=== PATIENT | female | born 1970 | race African-American/Black ===

== ENCOUNTER 2018-03-12 08:02 | Emergency (ER) | payer BC ==
[~2018-03-12] VITALS: Ht 152.4 cm; Wt 91.4 kg
[2018-03-12] MEDS ORDERED: 0.9 % SODIUM CHLORIDE 10 ML DISP.SYRIN. IV PRN (08:45)
--- NOTE | 2018-03-12 09:14 | RAD ---
CT head without intravenous contrast History: Fatigue, dizziness, weakness. Comparison: CT head August 08, 2012. Technique: Axial images are obtained of the head from the skull base through the vertex without IV contrast. Exposure: One or more of the following individualized dose reduction techniques were utilized for this examination: 1. Automated exposure control 2. Adjustment of the mA and/or kV according to patient size 3. Use of iterative reconstruction technique Findings: The ventricles are appropriate in size, shape, and location for the patient's age. No obvious intracranial mass, mass-effect, midline shift, hemorrhage or obvious acute infarction is identified. Basilar cisterns are patent. Bone windows demonstrate no acute calvarial abnormality. The visualized paranasal sinuses appear clear. Impression: No acute intracranial process. Please note that CT can be relatively insensitive to acute ischemic infarction for up to 24 hours after symptom onset. Electronically signed by: Leoncio Vale MD (03/12/2018 9:10 AM) [facility]
[2018-03-12 09:21] LABS: BASO # 0.1 x10^3/uL (0.0-0.2); BASO % 1 % (0-3); EOS # 0.5 x10^3/uL (0.0-0.7); EOS % 5 % (0-3); HEMATOCRIT 32.2 % (36.0-47.0); HEMOGLOBIN 9.9 g/dL (12.0-15.5); LYMPH # 3.1 x10^3/uL (1.0-4.8); LYMPH % 27 % (24-48); MEAN CORPUSCULAR HEMOGLOBIN 22 pg (25-35); MEAN CORPUSCULAR HGB CONC 31 g/dL (31-37); MEAN CORPUSCULAR VOLUME 71 fL (79-100); MONO # 1.2 x10^3/uL (0.0-1.1); MONO % 10 % (0-9); NEUT # 6.6 x10^3uL (1.8-7.7); NEUT % 58 % (31-73); PLATELET COUNT 312 x10^3/uL (140-400); RED BLOOD COUNT 4.52 x10^6/uL (3.50-5.40); RED CELL DISTRIBUTION WIDTH 19.3 % (11.5-14.5); WHITE BLOOD COUNT 11.4 x10^3/uL (4.0-11.0)
--- NOTE | 2018-03-12 09:27 | EKG ---
[address] [address] Test Date: 2018-03-12 Test Time: 08:29:47 Pat Name: LOGAN MASTERS Department: Room: Gender: F Deputy Attorney General: ROSITA : 1970 Requested By: JOSE MORA Order Number: [id number] Reading MD: Edward Wolfe MD Measurements Intervals [place] Rate: 71 P: 54 FL: 134 QRS: -14 QRSD: 100 T: 96 QT: 446 QTc: 485 Interpretive Statements SINUS RHYTHM Electronically Signed On 03-12-2018 13:08:19 CDT by Edward Wolfe MD
--- NOTE | 2018-03-12 09:36 | RAD ---
EXAM: Chest, 2 views. HISTORY: Fatigue. COMPARISON: 08/08/2012 FINDINGS: Frontal and lateral views of the chest are obtained. There is cardiomegaly, slightly increased compared to the prior study. There is no consolidation, pleural effusion or pneumothorax. IMPRESSION: Mild cardiomegaly, slightly increased compared to the prior study. Electronically signed by: Bekah Noel MD (03/12/2018 9:33 AM) [facility]
[2018-03-12 09:44] LABS: ALBUMIN 3.4 g/dL (3.4-5.0); ALBUMIN/GLOBULIN RATIO 0.9 (1.0-1.7); CALCIUM 8.9 mg/dL (8.5-10.1); CREATININE 0.9 mg/dL (0.6-1.0); GFR 80.5; MAGNESIUM 1.9 mg/dL (1.8-2.4); POTASSIUM 3.3 mmol/L (3.5-5.1); TOTAL BILIRUBIN 0.3 mg/dL (0.2-1.0); TOTAL PROTEIN 7.2 g/dL (6.4-8.2)
[2018-03-12 09:53] LABS: BILIRUBIN,URINE NEG (NEG); CLARITY,URINE HAZY; COLOR,URINE YELLOW; GLUCOSE,URINE NEG (NEG); NITRITE,URINE NEG (NEG); RBC,URINE RARE /HPF (0-2); UROBILINOGEN,URINE 0.2 mg/dL (0.2 mg/dL)
[2018-03-12 09:54] LABS: BACTERIA,URINE MOD /HPF (0-FEW); SQUAMOUS EPITHELIAL CELL,UR MANY /LPF
[2018-03-12 10:07] LABS: ANISOCYTOSIS SLIGHT; HYPOCHROMIA MOD; MICROCYTOSIS MOD; PLT ESTIMATE ADEQUATE (ADEQUATE); POLYCHROMASIA PRESENT
[2018-03-12 10:08] LABS: OVALOCYTES PRESENT; TARGET CELLS PRESENT
--- NOTE | 2018-03-12 10:13 | PHYS DOC ---
Past History Past Medical History: Anxiety, Hypertension Past Surgical History: Tubal ligation Alcohol Use: None Drug Use: None Adult General Chief Complaint Chief Complaint: dizziness and weakness [facility] HPI 47-year-old female patient complaining of generalized weakness for the last 4 days with intermittent episodes of dizziness with activity associated with nausea. Patient states she had foggy thinking today and almost passing out because of weakness and dizziness and decided to come to ER. She denies chest pain, palpitation, focal neuro deficit, fever and chills, urinary symptom. Patient states she had shortness of breath and lower extremity edema and seen by her primary care physician and treated with losartan/hydrochlorothiazide 5 days ago improvement of her condition. Patient states she had chest x-ray few weeks ago that showed she had enlarged heart. Review of Systems Review of Systems Constitutional: Denies fever or chills [] Eyes: Denies change in visual acuity, redness, or eye pain [] HENT: Denies nasal congestion or sore throat [] Respiratory: Denies cough or shortness of breath [] Cardiovascular: No additional information not addressed in HPI [] GI: Denies abdominal pain, vomiting, bloody stools or diarrhea , reports nausea [] : Denies dysuria or hematuria [] Musculoskeletal: Denies back pain or joint pain [] Integument: Denies rash or skin lesions [] Neurologic: Denies headache, focal weakness or sensory changes [] Endocrine: Denies polyuria or polydipsia [] All other systems were reviewed and found to be within normal limits, except as documented in this note. Current Medications Current Medications Current Medications Medications (Trade) Dose Ordered Sig/[facility] Start Time Stop Time Status Last Admin Dose Admin Sodium Chloride (Normal Saline Flush) 10 ml QSHIFT PRN 03/12/18 08:45 UNV Physical Exam Physical Exam Constitutional: Well developed, well nourished, mild distress, non-toxic appearance. [] HENT: Normocephalic, atraumatic, bilateral external ears normal, oropharynx moist, no oral exudates, nose normal. Eyes: PERRLA, EOMI, conjunctiva normal, no discharge, mild pallor. [] Neck: Normal range of motion, no tenderness, supple, no stridor. [] Cardiovascular:Heart rate regular rhythm, no murmur [] Lungs & Thorax: Bilateral breath sounds clear to auscultation [] Abdomen: Bowel sounds normal, soft, no tenderness, no masses, no pulsatile masses. [] Skin: Warm, dry, no erythema, no rash. [] Back: No tenderness, no CVA tenderness. [] Extremities: No tenderness, no cyanosis, no clubbing, ROM intact, no edema. [] Neurologic: Alert and oriented X 3, normal motor function, normal sensory function, no focal deficits noted. [] Psychologic: Affect normal, judgement normal, mood normal. [] Current Patient Data Vital Signs Vital Signs Date Time Temp Pulse Resp B/P (MAP) Pulse Ox O2 Delivery O2 Flow Rate FiO2 03/12/18 08:26 98.0 70 22 99 Room Air Lab Results Laboratory Tests Test 03/12/18 09:04 03/12/18 09:15 White Blood Count 11.4 x10^3/uL (4.0-11.0) H Red Blood Count 4.52 x10^6/uL (3.50-5.40) Hemoglobin 9.9 g/dL (12.0-15.5) L Hematocrit 32.2 % (36.0-47.0) L Mean Corpuscular Volume 71 fL (79-100) L Mean Corpuscular Hemoglobin 22 pg (25-35) L Mean Corpuscular Hemoglobin Concent 31 g/dL (31-37) Red Cell Distribution Width 19.3 % (11.5-14.5) H Platelet Count 312 x10^3/uL (140-400) Neutrophils (%) (Auto) 58 % (31-73) Lymphocytes (%) (Auto) 27 % (24-48) Monocytes (%) (Auto) 10 % (0-9) H Eosinophils (%) (Auto) 5 % (0-3) H Basophils (%) (Auto) 1 % (0-3) Neutrophils # (Auto) 6.6 x10^3uL (1.8-7.7) Lymphocytes # (Auto) 3.1 x10^3/uL (1.0-4.8) Monocytes # (Auto) 1.2 x10^3/uL (0.0-1.1) H Eosinophils # (Auto) 0.5 x10^3/uL (0.0-0.7) Basophils # (Auto) 0.1 x10^3/uL (0.0-0.2) Platelet Estimate Pending Sodium Level 139 mmol/L (136-145) Potassium Level 3.3 mmol/L (3.5-5.1) L Chloride Level 103 mmol/L (98-107) Carbon Dioxide Level 28 mmol/L (21-32) Anion Gap 8 (6-14) Blood Urea Nitrogen 10 mg/dL (7-20) Creatinine 0.9 mg/dL (0.6-1.0) Estimated GFR (Cockcroft-Gault) 80.5 BUN/Creatinine Ratio 11 (6-20) Glucose Level 99 mg/dL (70-99) Calcium Level 8.9 mg/dL (8.5-10.1) Magnesium Level 1.9 mg/dL (1.8-2.4) Total Bilirubin 0.3 mg/dL (0.2-1.0) Aspartate Amino Transferase (AST) 12 U/L (15-37) L Alanine Aminotransferase (ALT) 14 U/L (14-59) Alkaline Phosphatase 70 U/L (46-116) Creatine Kinase 60 U/L (26-192) Creatine Kinase MB (Mass) 0.6 ng/mL (0.0-3.6) Creatine Kinase MB Relative Index 1.0 % (0-4) Troponin I Quantitative < 0.017 ng/mL (0-0.055) HO-Myv-H-Type Natriuretic Peptide 463 pg/mL (0-124) H Total Protein 7.2 g/dL (6.4-8.2) Albumin 3.4 g/dL (3.4-5.0) Albumin/Globulin Ratio 0.9 (1.0-1.7) L Urine Collection Type Unknown Urine Color Yellow Urine Clarity Hazy Urine pH 5.5 Urine Specific [place] 1.025 Urine Protein 100 mg/dl (NEG-TRACE) Urine Glucose (UA) Neg mg/dL (NEG) Urine Ketones (Stick) Neg mg/dL (NEG) Urine Blood Mod (NEG) Urine Nitrite Neg (NEG) Urine Bilirubin Neg (NEG) Urine Urobilinogen Dipstick 0.2 mg/dL (0.2 mg/dL) Urine Leukocyte Esterase Neg (NEG) Urine RBC Rare /HPF (0-2) Urine WBC 1-4 /HPF (0-4) Urine Squamous Epithelial Cells Many /LPF Urine Bacteria Mod /HPF (0-FEW) Urine Mucus Marked /LPF EKG EKG EKG interpreted by me. EKG at 0 829 showed normal sinus rhythm at rate of 71, left atrial abnormality, left axis deviation, T abnormality in lateral leads, prolonged QT, no acute ST and T-wave abnormalities[] Radiology/Procedures Radiology/Procedures [] [address] [address] IMAGING REPORT Signed PATIENT: LOGAN MASTERS ACCOUNT: [id number] : 1970 LOCATION: ER AGE: 47 SEX: F EXAM STATUS: REG ER ORD. PHYSICIAN: JOSE MORA MD REASON: dizziness PROCEDURE: CHEST PA & LATERAL EXAM: Chest, 2 views. HISTORY: Fatigue. COMPARISON: 08/08/2012 FINDINGS: Frontal and lateral views of the chest are obtained. There is cardiomegaly, slightly increased compared to the prior study. There is no consolidation, pleural effusion or pneumothorax. IMPRESSION: Mild cardiomegaly, slightly increased compared to the prior study. Electronically signed by: Bekah Paniagua MD (03/12/2018 9:33 AM) [email or web address] DICTATED AND SIGNED BY: BEKAH PANIAGUA MD DATE: 03/12/18931 CC: JOSE MORA MD; ISI WAKEFIELD MD ~ [address] [address] IMAGING REPORT Signed PATIENT: LOGAN MASTERS ACCOUNT: [id number] : 1970 LOCATION: ER AGE: 47 SEX: F EXAM STATUS: REG ER ORD. PHYSICIAN: JOSE MORA MD REASON: dizziness PROCEDURE: CT HEAD WO CONTRAST CT head without intravenous contrast History: Fatigue, dizziness, weakness. Comparison: CT head August 08, 2012. Technique: Axial images are obtained of the head from the skull base through the vertex without IV contrast. Exposure: One or more of the following individualized dose reduction techniques were utilized for this examination: 1. Automated exposure control 2. Adjustment of the mA and/or kV according to patient size 3. Use of iterative reconstruction technique Findings: The ventricles are appropriate in size, shape, and location for the patient's age. No obvious intracranial mass, mass-effect, midline shift, hemorrhage or obvious acute infarction is identified. Basilar cisterns are patent. Bone windows demonstrate no acute calvarial abnormality. The visualized paranasal sinuses appear clear. Impression: No acute intracranial process. Please note that CT can be relatively insensitive to acute ischemic infarction for up to 24 hours after symptom onset. Electronically signed by: Leoncio Vizcarra MD (03/12/2018 9:10 AM) [facility] DICTATED AND SIGNED BY: LEONCIO VIZCARRA MD DATE: 03/12/18 0908 CC: JOSE MORA MD; ISI WAKEFIELD MD ~ Course & Med Decision Making Course & Med Decision Making Pertinent Labs and Imaging studies reviewed. (See chart for details) Evaluation of patient in ER showed 47-year-old male patient with complaining of generalized weakness and exertional shortness of breath and dizziness. Patient had mild pallor. Patient had negative fecal for blood. She denies heavy vaginal bleeding. Patient instructed to follow up with her primary care physician for more evaluation of anemia and dizziness. discharge: I've spoken with the patient and/or caregivers. I've explained the patient's condition, diagnosis and treatment plan based on information available to me at this time. I've answered the patient's and/or caregivers questions and addressed any concerns. The patient and/or caregivers have a good understanding the patient's diagnosis, condition and treatment plan as can be expected at this point. Vital signs have been stabilized. The patient's condition is stable for discharge from the emergency department. The patient will pursue further outpatient evaluation with her primary care provider or other designated consulting physician as outlined in the discharge instructions. Patient and/or caregivers are agreeable to this plan of care and follow-up instructions have been explained in detail. The patient and/or caregivers have received these instructions in written format and expressed understanding of these discharge instructions. The patient and her caregivers are aware that if any significant change in condition or worsening of symptoms should prompt him to immediately return to this of the closest emergency department. If an emergent department is not readily available I would encourage him to call 911. Syd Disclaimer Dragruthy Disclaimer This electronic medical record was generated, in whole or in part, using a voice recognition dictation system. Departure Departure: Impression: Primary Impression: Anemia Additional Impressions: Dizziness Hypokalemia Cardiomegaly Uncontrolled hypertension Tobacco abuse Tobacco abuse counseling Disposition: HOME, SELF-CARE (At 1122) Condition: IMPROVED Referrals: ISI WAKEFIELD MD (PCP) Patient Instructions: Anemia, FAQs, Dizziness, Smoking Cessation, Tips For Success Additional Instructions: Take [id number] iron Follow-up with your primary care physician in 3-5 days Return to ER if not getting better Problem Qualifiers JOSE MORA MD March 12, 2018 10:13
[2018-03-12 11:02] LABS: FECAL OB PT NEGATIVE (NEG)
[2018-03-12 14:31] VITALS: BP 161/94
== END 2018-03-12 11:30 | disposition home or self-care (01) ==
LOC: ER 08:02
DX: E87.6 Hypokalemia (principal); D64.9 Anemia, unspecified; I51.7 Cardiomegaly; I10 Essential (primary) hypertension; F41.9 Anxiety disorder, unspecified; Z72.0 Tobacco use; Z71.6 Tobacco abuse counseling
CPT/HCPCS: 36415; 70450; 71046; 80053; 81001; 82274; 82553; 83735; 83880; 84484; 85025; 87086; 93005; 99285-25

== ENCOUNTER 2021-06-02 13:50 | Emergency (ER) | payer BC ==
[~2021-06-02] VITALS: Ht 152.4 cm; Wt 78.6 kg
--- NOTE | 2021-06-02 14:55 | EKG ---
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
--- NOTE | 2021-06-02 15:09 | RAD ---
CT HEAD INDICATION: Reason: dizziness, hypertension / Spl. Instructions: / History: COMPARISON: 03/12/2018. Exposure: One or more of the following individualized dose reduction techniques were utilized for thi s examination: 1. Automated exposure control 2. Adjustment of the mA and/or kV according to patient size 3. Use of iterative reconstruction technique TECHNIQUE: 5 mm contiguous axial images were obtained from the skull base to the vertex in both bone and soft tissue algorithm. FINDINGS: No abnormal attenuation within the brain parenchyma. No evidence of acute intracranial hemorrhage. No extra-axial fluid collections. No mass effect or midline shift. Ventricular size is appropriate. Basal cisterns are patent. No fractures identified.Garcia-white differentiation is preserved.Globes and orbits are within normal l imits. Paranasal sinuses and mastoid air cells are clear. IMPRESSION: No acute intracranial findings. Electronically signed by: Morgan Coulter MD (06/02/2021 3:06 PM) [id number]
--- NOTE | 2021-06-02 15:15 | RAD ---
EXAM: Chest, single view. HISTORY: Chest pain. COMPARISON: 03/12/2018 FINDINGS: A frontal view of the chest is obtained. There is no infiltrate, pleural effusion or pneumo thorax. There is a stable enlarged cardiac silhouette. IMPRESSION: 1. Stable enlarged cardiac silhouette. 2. No acute thoracic finding. Electronically signed by: Bekah Noel MD (06/02/2021 3:13 PM) [email or web address]
[2021-06-02 15:26] LABS: BASO # 0.1 x10^3/uL (0.0-0.2); BASO % 1 % (0-3); EOS # 0.4 x10^3/uL (0.0-0.7); EOS % 4 % (0-3); HEMATOCRIT 40.1 % (36.0-47.0); HEMOGLOBIN 13.3 g/dL (12.0-15.5); LYMPH # 2.7 x10^3/uL (1.0-4.8); LYMPH % 31 % (24-48); MEAN CORPUSCULAR HEMOGLOBIN 31 pg (25-35); MEAN CORPUSCULAR HGB CONC 33 g/dL (31-37); MEAN CORPUSCULAR VOLUME 92 fL (79-100); MONO # 0.7 x10^3/uL (0.0-1.1); MONO % 8 % (0-9); NEUT # 4.9 x10^3uL (1.8-7.7); NEUT % 57 % (31-73); PLATELET COUNT 151 x10^3/uL (140-400); RED BLOOD COUNT 4.35 x10^6/uL (3.50-5.40); WHITE BLOOD COUNT 8.7 x10^3/uL (4.0-11.0)
[2021-06-02 15:33] LABS: CALCIUM 8.8 mg/dL (8.5-10.1); CREATININE 0.8 mg/dL (0.6-1.0); GFR 91.1; POTASSIUM 3.6 mmol/L (3.5-5.1)
[2021-06-02 15:35] LABS: BILIRUBIN,URINE NEG (NEG); CLARITY,URINE HAZY; COLOR,URINE STRAW; GLUCOSE,URINE NEG (NEG); NITRITE,URINE NEG (NEG); UROBILINOGEN,URINE 0.2 mg/dL (0.2 mg/dL)
[2021-06-02 15:36] LABS: BACTERIA,URINE FEW /HPF (0-FEW)
[2021-06-02 15:40] LABS: ALBUMIN 3.3 g/dL (3.4-5.0); ALBUMIN/GLOBULIN RATIO 1.2 (1.0-1.7); TOTAL BILIRUBIN 0.4 mg/dL (0.2-1.0); TOTAL PROTEIN 6.1 g/dL (6.4-8.2)
[2021-06-02] MEDS ORDERED: AMLO-186 PO (15:53)
--- NOTE | 2021-06-02 15:53 | PHYS DOC ---
Past History Past Medical History: Anxiety, Hypertension Past Surgical History: Tubal ligation Alcohol Use: Occasionally Additional Alcohol Information: 2 glasses 6oz/noc Drug Use: None General Adult EDM: Chief Complaint: HYPERTENSION HPI: HPI: Patient is a 50 years old female with history of HTN, on Losartan/HCTZ combination, presented to the ER for evaluation of dizziness, headache, elevated blood pressure for 2 days. Patient also complains of increase urinary frequency and urgency. She denied any cough or fever, no shortness of air, no abdominal pain. Patient said this is not the worse headache of her life. Review of Systems: Review of Systems: Constitutional: Denies fever or chills Eyes: Denies change in visual acuity HENT: Denies nasal congestion or sore throat Respiratory: Denies cough or shortness of breath Cardiovascular: Denies chest pain or edema GI: Denies abdominal pain, nausea, vomiting, bloody stools or diarrhea :Positive for urinary urgency and frequency. Musculoskeletal: Denies back pain or joint pain Integument: Denies rash Neurologic: Positive for headache and dizziness, focal weakness or sensory changes Endocrine: Denies polyuria or polydipsia Lymphatic: Denies swollen glands Psychiatric: Denies depression or anxiety Allergies: Allergies: Allergies Coded Allergies Type Severity Reaction Last Updated Verified No Known Drug Allergies 06/02/21 No Physical Exam: PE: Constitutional: Well developed, well nourished, no acute distress, non-toxic appearance. [] HENT: Normocephalic, atraumatic, bilateral external ears normal, oropharynx moist, no oral exudates, nose normal. [] Eyes: PERRLA, EOMI, conjunctiva normal, no discharge. [] Neck: Normal range of motion, no tenderness, supple, no stridor. [] Cardiovascular:Heart rate regular rhythm, no murmur [] Lungs & Thorax: Bilateral breath sounds clear to auscultation [] Abdomen: Bowel sounds normal, soft, no tenderness, no masses, no pulsatile masses. [] Skin: Warm, dry, no erythema, no rash. [] Back: No tenderness, no CVA tenderness. [] Extremities: No tenderness, no cyanosis, no clubbing, ROM intact, no edema. [] Neurologic: Alert and oriented X 3, normal motor function, normal sensory function, no focal deficits noted. [] Psychologic: Affect normal, judgement normal, mood normal. [] Current Patient Data: Labs: Laboratory Tests Test 06/02/21 14:49 06/02/21 14:54 06/02/21 15:09 White Blood Count 8.7 x10^3/uL (4.0-11.0) Red Blood Count 4.35 x10^6/uL (3.50-5.40) Hemoglobin 13.3 g/dL (12.0-15.5) Hematocrit 40.1 % (36.0-47.0) Mean Corpuscular Volume 92 fL (79-100) Mean Corpuscular Hemoglobin 31 pg (25-35) Mean Corpuscular Hemoglobin Concent 33 g/dL (31-37) Red Cell Distribution Width 16.0 % (11.5-14.5) H Platelet Count 151 x10^3/uL (140-400) Neutrophils (%) (Auto) 57 % (31-73) Lymphocytes (%) (Auto) 31 % (24-48) Monocytes (%) (Auto) 8 % (0-9) Eosinophils (%) (Auto) 4 % (0-3) H Basophils (%) (Auto) 1 % (0-3) Neutrophils # (Auto) 4.9 x10^3uL (1.8-7.7) Lymphocytes # (Auto) 2.7 x10^3/uL (1.0-4.8) Monocytes # (Auto) 0.7 x10^3/uL (0.0-1.1) Eosinophils # (Auto) 0.4 x10^3/uL (0.0-0.7) Basophils # (Auto) 0.1 x10^3/uL (0.0-0.2) Sodium Level 143 mmol/L (136-145) Potassium Level 3.6 mmol/L (3.5-5.1) Chloride Level 106 mmol/L (98-107) Carbon Dioxide Level 30 mmol/L (21-32) Anion Gap 7 (6-14) Blood Urea Nitrogen 12 mg/dL (7-20) Creatinine 0.8 mg/dL (0.6-1.0) Estimated GFR (Cockcroft-Gault) 91.1 BUN/Creatinine Ratio 15 (6-20) Glucose Level 104 mg/dL (70-99) H Calcium Level 8.8 mg/dL (8.5-10.1) Magnesium Level 2.0 mg/dL (1.8-2.4) Total Bilirubin 0.4 mg/dL (0.2-1.0) Aspartate Amino Transferase (AST) 14 U/L (15-37) L Alanine Aminotransferase (ALT) 18 U/L (14-59) Alkaline Phosphatase 70 U/L (46-116) DU-Epm-P-Type Natriuretic Peptide 607 pg/mL (0-124) H Total Protein 6.1 g/dL (6.4-8.2) L Albumin 3.3 g/dL (3.4-5.0) L Albumin/Globulin Ratio 1.2 (1.0-1.7) Lipase 53 U/L (73-393) L Troponin I Quantitative < 0.017 ng/mL (0-0.055) Urine Collection Type Void Urine Color Straw Urine Clarity Hazy Urine pH 7.0 Urine Specific [place] 1.020 Urine Protein 30 mg/dl (NEG-TRACE) Urine Glucose (UA) Neg mg/dL (NEG) Urine Ketones (Stick) Neg mg/dL (NEG) Urine Blood Small (NEG) Urine Nitrite Neg (NEG) Urine Bilirubin Neg (NEG) Urine Urobilinogen Dipstick 0.2 mg/dL (0.2 mg/dL) Urine Leukocyte Esterase Trace (NEG) Urine RBC 1-2 /HPF (0-2) Urine WBC 5-10 /HPF (0-4) Urine Bacteria Few /HPF (0-FEW) Vital Signs: Vital Signs Date Time Temp Pulse Resp B/P (MAP) Pulse Ox O2 Delivery O2 Flow Rate FiO2 06/02/21 15:06 56 16 198/110 (139) 99 06/02/21 14:06 98.3 Room Air EKG: EKG: EKG was done at 1359, heart rate of 61 beats per, sinus rhythm, no ST segment elevation. Left axis. Radiology/Procedures: Radiology/Procedures: [address] [address] IMAGING REPORT Signed PATIENT: LOGAN MASTERS ACCOUNT: [id number] : 1970 LOCATION: ER AGE: 50 SEX: F EXAM STATUS: REG ER ORD. PHYSICIAN: HALINA REGAN DO REASON: dizziness, hypertension PROCEDURE: CT HEAD WO CONTRAST CT HEAD INDICATION: Reason: dizziness, hypertension / Spl. Instructions: / History: COMPARISON: 03/12/2018. Exposure: One or more of the following individualized dose reduction techniques were utilized for this examination: 1. Automated exposure control 2. Adjustment of the mA and/or kV according to patient size 3. Use of iterative reconstruction technique TECHNIQUE: 5 mm contiguous axial images were obtained from the skull base to the vertex in both bone and soft tissue algorithm. FINDINGS: No abnormal attenuation within the brain parenchyma. No evidence of acute intracranial hemorrhage. No extra-axial fluid collecti ons. No mass effect or midline shift. Ventricular size is appropriate. Basal cisterns are patent. No fractures identified.Garcia-white differentiation is preserved.Globes and orbits are within normal limits. Paranasal sinuses and mastoid air cells are c lear. IMPRESSION: No acute intracranial findings. Electronically signed by: Morgan Coulter MD (06/02/2021 3:06 PM) [id number] DICTATED AND SIGNED BY: MORGAN COULTER MD DATE: 06/02/21 150 CC: ISI WAKEFIELD MD; HALINA REGAN DO ~MTH0 [address] [place] [address] IMAGING REPORT Signed PATIENT: LOGAN MASTERS ACCOUNT: [id number] : 1970 LOCATION: ER AGE: 50 SEX: F EXAM STATUS: REG ER ORD. PHYSICIAN: HALINA REGAN DO REASON: chest pain PROCEDURE: PORTABLE CHEST 1V EXAM: Chest, single view. HISTORY: Chest pain. COMPARISON: 03/12/2018 FINDINGS: A frontal view of the chest is obtained. There is no infiltrate, pleural effusion or pneumothorax. There is a stable enlarged cardiac silhouette. IMPRESSION: 1. Stable enlarged cardiac silhouette. 2. No acute thoracic finding. Electronically signed by: Bekah Paniagua MD (06/02/2021 3:13 PM) [email or web address] DICTATED AND SIGNED BY: BEKAH PANIAGUA MD DATE: 06/02/21 1512 CC: ISI WAKEFIELD MD; HALINA REGAN DO ~MTH0 0 Heart Score: C/O Chest Pain: N/A Risk Factors: Risk Factors: DM, Current or recent (<one month) smoker, HTN, HLP, family history of CAD, obesity. Risk Scores: Score 0 - 3: 2.5% MACE over next 6 weeks - Discharge Home Score 4 - 6: 20.3% MACE over next 6 weeks - Admit for Clinical Observation Score 7 - 10: 72.7% MACE over next 6 weeks - Early Invasive Strategies Course & Med Decision Making: Course & Med Decision Making Pertinent Labs and Imaging studies reviewed. (See chart for details) Patient presented for evaluation due to headache dizziness and elevated blood pressure, she was found to have UTI, CT head was negative, lab works were reassuring, will discharge her home with antibiotic and add amlodipine to her current hypertensive treatment regimen. Dragon Disclaimer: Dragon Disclaimer: This electronic medical record was generated, in whole or in part, using a voice recognition dictation system. Departure Departure: Impression: Primary Impression: Hypertension Additional Impression: UTI (urinary tract infection) Disposition: HOME / SELF CARE / HOMELESS Condition: STABLE Referrals: ISI WAKEFIELD MD (PCP) Please follow up with your doctor in 1-2 days for reevaluation Patient Instructions: Hypertension, Urinary Tract Infection Additional Instructions: Thank you for visiting our Emergency Department. We appreciate you trusting us with your care. If any additional problems come up don't hesitate to return to visit us. Please follow up with your primary care provider so they can plan additional care if needed and know about the problem that you had. If symptoms worsen come back to the Emergency Department. Any concerning symptoms that start such as chest pain, shortness of air, weakness or numbness on one side of the body, running high fevers or any other concerning symptoms return to the ER. Scripts Cephalexin (CEPHALEXIN) 500 Mg Tablet 1 TAB PO QID for UTI for 7 Days, #28 TAB Prov: HALINA REGAN DO 06/02/21 Amlodipine Besylate (AMLODIPINE BESYLATE) 5 Mg Tablet 1 TAB PO DAILY for hypertension, #30 TAB 5 Refills Prov: HALINA REGAN DO 06/02/21 HALINA REGAN DO Jun 02, 2021 15:53
[2021-06-02] MEDS ORDERED: CEPH500T PO (16:03)
[2021-06-02] MEDS ORDERED: cefTRIAXone SODIUM 1 GM VIAL ONE (16:20)
[2021-06-02] MEDS ORDERED: IV NORMAL SALINE 50ML 50 ML ONE (16:20)
[2021-06-02 16:57] VITALS: BP 192/84
--- NOTE | 2021-06-02 17:36 | EKG ---
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
== END 2021-06-02 17:01 | disposition home or self-care (01) ==
LOC: ER 13:50
DX: I10 Essential (primary) hypertension (principal); N39.0 Urinary tract infection, site not specified; F41.9 Anxiety disorder, unspecified; Z98.51 Tubal ligation status
CPT/HCPCS: 36415; 70450; 71045; 80053; 81001; 83690; 83735; 83880; 84484; 85025; 87086; 93005; 96365; 99285; J0696